=== PATIENT | male | born 1975 | race Caucasian/White ===

== ENCOUNTER 2020-12-11 16:47 | Inpatient (IN) | payer MEDICAID, OTHER ==
[~2020-12-11] VITALS: Ht 180.3 cm; Wt 88.5 kg
[2020-12-11] MEDS ORDERED: ASPIRIN 325MG TABLET PO ONE (17:45)
[2020-12-11] MEDS ORDERED: FUROSEMIDE 40MG/4ML VIAL IV ONE (17:45)
[2020-12-11 17:54] LABS: BASOPHILS % 0.8 % (0.0-2.0); EOSINOPHILS % 0.5 % (0.0-5.0); HEMATOCRIT. 43.4 % (42.0-52.0); HEMOGLOBIN. 14.9 g/dL (14.0-18.0); LYMPHOCYTES % 14.5 % (20.0-50.0); MEAN CORPUSCULAR HEMOGLOBIN 30.5 pg (28.0-32.0); MEAN CORPUSCULAR VOLUME 88.6 fL (80.0-94.0); MEAN PLATELET VOLUME 8.6 fl (7.4-10.4); MONOCYTES % 7.3 % (2.0-8.0); NEUTROPHILS % 76.9 % (40.0-76.0); PLATELET 194 x1000/uL (130-400); RED CELL DISTRIBUTION WIDTH 14.2 % (11.6-14.6)
[2020-12-11 18:02] LABS: CHLORIDE 108 mEq/L (98-107)
[2020-12-11 22:00] VITALS: BP 123/95
[2020-12-11 22:10] VITALS: BP 123/95
[2020-12-12] VITALS: BP 122/84
[2020-12-12] MEDS ORDERED: HYDROCODONE/ACETAMINOPHEN 5/325MG TABLET PO PRN (01:00)
[2020-12-12] MEDS ORDERED: CARV3.1242 PO (02:18)
[2020-12-12] MEDS ORDERED: FURO80TA87 PO (02:18)
[2020-12-12] MEDS ORDERED: SPIR25TA6 MT (02:19)
[2020-12-12] MEDS ORDERED: METO-396 MT (02:20)
[2020-12-12 04:00] VITALS: BP 126/97
[2020-12-12 07:51] VITALS: BP 138/102
[2020-12-12] MEDS: ASPIRIN 81MG TABLET PO SCH (08:44)
[2020-12-12] MEDS: LISINOPRIL 20MG TABLET PO SCH (08:44)
[2020-12-12] MEDS: CARVEDILOL 3.125 MG TABLET PO SCH ×2 (08:45→20:52)
[2020-12-12] MEDS: ENOXAPARIN 40MG/0.4ML SYR SUBCUT SCH (08:45)
[2020-12-12] MEDS: FUROSEMIDE 100MG/10ML VIAL IVP SCH (08:46)
[2020-12-12 11:40] VITALS: BP 134/88
[2020-12-12 14:55] LABS: *BARBITURATES SCREEN URINE NEGATIVE (NEGATIVE); *BENZODIAZEPINES SCREEN URINE NEGATIVE (NEGATIVE); *COCAINE SCREEN URINE NEGATIVE (NEGATIVE); CANNABINOID URINE SCREEN NEGATIVE (NEGATIVE); METHADONE URINE SCREEN NEGATIVE (NEGATIVE); PHENCYCLIDINE URINE SCREEN NEGATIVE (NEGATIVE)
[2020-12-12 14:56] LABS: *AMPHETAMINES SCREEN URINE NEGATIVE (NEGATIVE); OPIATES URINE SCREEN NEGATIVE (NEGATIVE)
[2020-12-12 16:06] VITALS: BP 122/77
[2020-12-12 20:00] VITALS: BP 110/74
[2020-12-13] VITALS (8 sets, daily range): BP systolic 99–115; BP diastolic 60–79
[2020-12-13 07:58] LABS: BASOPHILS % 0.7 % (0.0-2.0); EOSINOPHILS % 2.6 % (0.0-5.0); HEMATOCRIT. 41.6 % (42.0-52.0); LYMPHOCYTES % 24.3 % (20.0-50.0); MEAN CORPUSCULAR HEMOGLOBIN 29.9 pg (28.0-32.0); MEAN CORPUSCULAR VOLUME 88.8 fL (80.0-94.0); MEAN PLATELET VOLUME 9.3 fl (7.4-10.4); MONOCYTES % 8.2 % (2.0-8.0); NEUTROPHILS % 64.2 % (40.0-76.0); PLATELET 189 x1000/uL (130-400); RED BLOOD CELL COUNT 4.69 mill/uL (4.7-6.1)
[2020-12-13] MEDS: LISINOPRIL 20MG TABLET PO SCH (09:00)
[2020-12-13] MEDS: ENOXAPARIN 40MG/0.4ML SYR SUBCUT SCH (09:10)
[2020-12-13] MEDS: FUROSEMIDE 100MG/10ML VIAL IVP SCH (09:10)
[2020-12-13] MEDS: CARVEDILOL 3.125 MG TABLET PO SCH ×2 (09:10→21:00)
[2020-12-13] MEDS: ASPIRIN 81MG TABLET PO SCH (09:13)
[2020-12-14] VITALS: BP 123/87
== END 2020-12-14 01:40 | DRG 194 ==
LOC: EDBD 16:47 → ER 16:47 → 6WST 19:50 → EDBEDREQ 20:18 → EDBEDREQTM 20:18 → ENRESERV 20:59
PROVIDERS: ADMIT Internal Medicine; ATTEND Internal Medicine
DX: I11.0 Hypertensive heart disease with heart failure (principal); N17.0 Acute kidney failure with tubular necrosis; E87.8 Other disorders of electrolyte and fluid balance, not elsewhere classified; E44.1 Mild protein-calorie malnutrition; I27.20 Pulmonary hypertension, unspecified; I50.23 Acute on chronic systolic (congestive) heart failure; Z20.822 Contact with and (suspected) exposure to COVID-19; I42.9 Cardiomyopathy, unspecified; F15.90 Other stimulant use, unspecified, uncomplicated; R74.01 Elevation of levels of liver transaminase levels; Z79.84 Long term (current) use of oral hypoglycemic drugs; Z79.899 Other long term (current) drug therapy; Z68.27 Body mass index [BMI] 27.0-27.9, adult
CPT/HCPCS: 36415; 71045; 76700; 80048; 80053; 80305; 83735; 83880; 84443; 84484; 85025; 85379; 93005; 93306; 99285; J1650; J1940; U0003; U0005